=== PATIENT | male | born 1985 | race Caucasian/White ===

== ENCOUNTER → 2018-01-22 | Outpatient (CLI) | payer BC ==
[~2018-01-22] MED LIST: ACHD5005 PO; ALBU8.5H2 IH; AMOX-355 PO; ATEN100T PO; ATEN50TA PO; BUDE6HFA IH; CHOL500044 PO; CITA20TA7 PO; HYDR25TA4 PO; LEVO500T69 PO; LORA10CA PO; METF1000 PO; MV-M1TAB37 PO; NALT1TAB PO; OMEP40CA36 PO; OMG1KC PO; SERT50TA PO; TRAM50TA2 PO; VERA180T5 PO
--- NOTE | 2018-01-22 11:27 | Diagnostic Imaging Report ---
INDICATION: Right heel pain. TIME OF EXAM: 11:21 a.m Two views of the right calcaneus were obtained. There is a large plantar calcaneal spur and a small posterior calcaneal spur. No fracture is seen. No sclerosis or stress reaction is seen. IMPRESSION: Calcaneal spurs. No other significant abnormality is detected. Dictated by: Dictated on workstation # [id number]
== END ==
LOC: RAD 10:46
PROVIDERS: ATTEND Nurse Practitioner Family
DX: M77.31 Calcaneal spur, right foot (principal)
CPT/HCPCS: 73650

== ENCOUNTER → 2019-10-07 | Outpatient (CLI) | payer BC ==
[~2019-10-07] MED LIST changes: -CITA20TA7 PO; +CITA20TA9 PO; +METF-399 PO; -METF1000 PO; +VERA180T11 PO; -VERA180T5 PO
[2019-10-07 10:13] LABS: BASOPHILS # (AUTO) 0.1 10^3/uL (0.0-0.1); BASOPHILS % (AUTO) 1 % (0-10); EOSINOPHILS # (AUTO) 0.3 10^3/uL (0.0-0.3); EOSINOPHILS % (AUTO) 2 % (0-10); HEMATOCRIT 41 % (40-54); HEMOGLOBIN 13.5 G/DL (13.3-17.7); LYMPHOCYTES # (AUTO) 2.9 X 10^3 (1.0-4.0); LYMPHOCYTES % (AUTO) 25 % (12-44); MEAN CORPUSCULAR HEMOGLOBIN 26 PG (25-34); MEAN CORPUSCULAR HGB CONC 33 G/DL (32-36); MEAN CORPUSCULAR VOLUME 79 FL (80-99); MEAN PLATELET VOLUME 9.5 FL (7.4-10.4); MONOCYTES # (AUTO) 1.2 X 10^3 (0.0-1.0); MONOCYTES % (AUTO) 10 % (0-12); NEUTROPHILS # (AUTO) 7.4 X 10^3 (1.8-7.8); NEUTROPHILS % (AUTO) 63 % (42-75); PLATELET COUNT 309 10^3/uL (130-400); RED CELL DISTRIBUTION WIDTH 15.8 % (10.0-14.5); WHITE BLOOD COUNT 11.9 10^3/uL (4.3-11.0)
[2019-10-07 10:34] LABS: ALANINE AMINOTRANSFERASE 34 U/L (0-55); ALBUMIN 3.9 GM/DL (3.2-4.5); ALKALINE PHOSPHATASE 69 U/L (40-136); BILIRUBIN,TOTAL 0.5 MG/DL (0.1-1.0); BUN/CREATININE RATIO 16; CALCIUM 8.8 MG/DL (8.5-10.1); CARBON DIOXIDE 25 MMOL/L (21-32); CHLORIDE 106 MMOL/L (98-107); CREATININE SERUM 0.91 MG/DL (0.60-1.30); GFR ESTIMATED > 60; GLUCOSE 99 MG/DL (70-105); POTASSIUM 4.1 MMOL/L (3.6-5.0); SODIUM 140 MMOL/L (135-145); TOTAL PROTEIN 6.5 GM/DL (6.4-8.2)
--- NOTE | 2019-10-07 10:41 | Diagnostic Imaging Report ---
EXAMINATION: CHEST (PA AND LATERAL). CLINICAL INDICATION: 34-year-old male, cough, dyspnea. COMPARISON: May 07, 2016. FINDINGS: The heart size and mediastinal contours are unremarkable. There is no identified pneumothorax. There is no pleural effusion. There is no identified focal airspace consolidation. IMPRESSION: 1. No identified acute cardiopulmonary abnormality. 2. The report was faxed to the office of Kayli Gutierrez APRN, by [email or web address]@10:40 AM. Dictated by: Dictated on workstation # [id number]
== END ==
LOC: LAB 09:52
PROVIDERS: ATTEND Nurse Practitioner Family
DX: R05 Cough (principal); R06.00 Dyspnea, unspecified
CPT/HCPCS: 36415; 71046; 80053; 83880; 85025; 85379; 86713; 86738

== ENCOUNTER 2020-04-04 01:43 | Inpatient (IN) | payer BC ==
[2020-04-04] VITALS (13 sets, daily range): BP systolic 101–146; BP diastolic 43–89
[~2020-04-04] VITALS: Ht 190.5 cm; Wt 196.7 kg
[~2020-04-04 01:43] MED LIST changes: +OMEP40CA27 PO; -OMEP40CA36 PO
[2020-04-04] MEDS ORDERED: LACTATED RINGERS 1,000 ML IV ONE ×2 (02:35)
[2020-04-04] MEDS ORDERED: NS IV 500 ML 500 ML IV ONE (02:35)
[2020-04-04 02:38] LABS: ABG BASE EXCESS 2.7 MMOL/L (-2.5-2.5); ABG OXYGEN SATURATION 65 % (94-100); ABG PCO2 48 MMHG (35-45); ABG PH 7.38 (7.37-7.43); ABG PO2 41 MMHG (79-93); ABG TCO2 28.7 MMOL/L (21.0-31.0); ALLENS TEST POSITIVE; INSPIRED O2 2; VENTILATOR NO
[2020-04-04] MEDS ORDERED: AZITHROMYCIN 500 MG (ZITHROMAX) VIAL ONE (02:38)
[2020-04-04] MEDS ORDERED: LACTATED RINGERS 2,000 ML IV ONE (02:38)
[2020-04-04] MEDS ORDERED: cefTRIAXone 1,000 MG IV (ROCEPHIN) VIAL ONE (02:38)
[2020-04-04 02:39] LABS: PATIENT TEMP 38.5
[2020-04-04] MEDS ORDERED: NS IV 500 ML 500 ML ONE (02:39)
[2020-04-04] MEDS ORDERED: NS (IVPB) 250 ML ONE (02:39)
[2020-04-04] MEDS ORDERED: RX-ALBUTEROL INHALER (PROAIR) 8.5 GM IH ONE (02:42)
[2020-04-04] MEDS ORDERED: cefTRIAXone FOR IV USE 1,000 MG in WATER (STERILE) FOR INJECTION 10 ML IV ONE (02:45)
[2020-04-04] MEDS ORDERED: ACETAMINOPHEN 500 MG TAB (TYLENOL) PO PRN ×2 (02:45→06:30)
[2020-04-04] MEDS ORDERED: AZITHROMYCIN INJECTION 500 MG in NS (IVPB) 250 ML IV ONE (02:45)
--- NOTE | 2020-04-04 02:53 | ED Respiratory ---
General Stated Complaint: FEVER, BODY ACHES, CHILLS,SORE THROAT Source: patient, spouse Exam Limitations: no limitations History of Present Illness Date Seen by Provider: Apr 04, 2020 Time Seen by Provider: 01:55 Initial Comments Patient presents to ER by private conveyance from home with his and chief complaint that about 1600 yesterday afternoon he began to feel myalgias in his back and chest chills sweats and shortness of air. He has baseline asthma. He's been using his albuterol inhaler without any improvement. He is on Symbicort. He does not take any other immunocompromising meds. He does take blood pressure medicine but has no history of heart disease or chest pain. No nausea diarrhea constipation or abdominal pain. He denies dysuria. He does travel working for [employer] co[employer]op in [place], [place] all across the [address] [place] [address] area. He says he typically is fairly isolated from other people and has no known sick contacts. He took 800 mg ibuprofen 2 hours prior to arrival. Patient states that since she started feeling sick he drank 3 gallons of Gatorade. Allergies and Home Medications Allergies Uncoded Allergies: DUST (Adverse Reaction, Unknown, 04/04/20) "GRAIN DUST" Home Medications Atenolol 100 Mg Tablet, 100 MG PO HS, (Reported) Citalopram Hydrobromide 20 Mg Tablet, 20 MG PO DAILY, (Reported) Hydrochlorothiazide 25 Mg Tablet, 25 MG PO DAILY, (Reported) Omeprazole 40 Mg Capsule.dr, 40 MG PO DAILY, (Reported) Verapamil HCl 180 Mg Tablet.er, 180 MG PO DAILY, (Reported) Patient Home Medication List Home Medication List Reviewed: Yes Review of Systems Review of Systems Constitutional: chills, diaphoresis, fever, malaise, weakness EENTM: No ear discharge, No ear pain Respiratory: cough (rare); No phlegm; short of breath; No wheezing Cardiovascular: No chest pain, No Hx of Intervention, No palpitations Gastrointestinal: No abdominal pain, No constipation, No diarrhea, No nausea, No vomiting Genitourinary: No discharge, No dysuria, No frequency Musculoskeletal: No back pain, No joint pain Skin: No pruritus, No rash Psychiatric/Neurological: Denies Headache, Denies Numbness All Other Systems Reviewed Negative Unless Noted: Yes Past Rcmkylg-Cxawvd-Tkvuvr Hx Patient Social History Alcohol Use: Denies Use Recreational Drug Use: No Smoking Status: Never a Smoker Former Smoker, Quit: May 07, 2006 Recent Foreign Travel: No Contact w/Someone Who Travel: No Immunizations Up To Date Tetanus Booster (TDap): Unknown Date of Influenza Vaccine: Jul 28, 2013 Past Medical History Asthma, Sleep Apnea Gastroesophageal Reflux Anxiety Family Medical History No Pertinent Family Hx Physical Exam Vital Signs - First Documented 04/04/20 02:07 Temp 37.8 Pulse 105 Resp 20 B/P (MAP) 127/74 (91) Pulse Ox 96 O2 Delivery Nasal Cannula O2 Flow Rate 2.00 Capillary Refill : Height: 6'3.00" Weight: 375lbs. 0.0oz. [id number]; 43.33 BMI Method: General Appearance: moderate distress, obese Eyes: Bilateral Eye Normal Inspection, Bilateral Eye PERRL, Bilateral Eye EOMI HEENT: PERRL/EOMI, normal ENT inspection, pharynx normal Neck: full range of motion, normal inspection Respiratory: lungs clear, respiratory distress ([id number] with oxygen sats in the 92-93% range on room air and respiratory rate of 25-30 breaths per minute), decreased breath sounds Cardiovascular: normal peripheral pulses, regular rate, rhythm, no edema, no murmur, tachycardia Gastrointestinal: normal bowel sounds, non tender, soft Extremities: normal range of motion, non-tender, normal inspection, no pedal edema, no calf tenderness, normal capillary refill Neurologic/Psychiatric: no motor/sensory deficits, alert, normal mood/affect, oriented x 3 Skin: normal color, warm/dry Focused Exam Sepsis Stage: Sepsis Possible Source: Pulmonary Lactate Level 04/04/20 02:25: Lactic Acid Level 1.41 Time of Focused Exam: 03:30 Respiratory: Lungs Clear, Accessory Muscle Use (mild), Decreased Breath Sounds, Respiratory Distress (moderate oxygen saturation upper 90s on 2 L) Cardiovascular: Regular Rate, Rhythm (heart rate in the 90s), No Edema, Normal Peripheral Pulses Capillary Refill: Less Than 3 Seconds Peripheral Pulses: 2+ Dorsalis Pedis (R), 2+ Left Dors-Pedis (L), 2+ Radial Pulses (R), 2+ Radial Pulses (L) Skin: normal color, warm/dry, diaphoresis Lactic Acid Level Laboratory Tests Test 04/04/20 02:25 Lactic Acid Level 1.41 MMOL/L (0.50-2.00) Within 3hrs of presentation: Admin fluids, Admin 30ml/kg IBW due to BMI>30, Blood cultures prior to ABX's, Focus exam, Lactate level Progress/Results/Core Measures Suspected Sepsis Recent Fever Within 48 Hours: Yes Infection Criteria Present: Suspected New Infection Within 3hrs of presentation: Admin fluids, Admin 30ml/kg IBW due to BMI>30, Admin ABX, Blood cultures prior to ABX's, Focus exam, Lactate level SIRS Temperature: Pulse: Respiratory Rate: Laboratory Tests 04/04/20 02:25: White Blood Count 10.7 Blood Pressure / Mean: 04/04/20 02:25: Lactic Acid Level 1.41 Laboratory Tests 04/04/20 02:25: Creatinine 0.99, INR Comment 1.0, Platelet Count 252, Total Bilirubin 0.4 Results/Orders Lab Results Laboratory Tests Test 04/04/20 02:25 04/04/20 02:37 Range/Units White Blood Count 10.7 4.3-11.0 10^3/uL Red Blood Count 5.41 4.35-5.85 10^6/uL Hemoglobin 14.4 13.3-17.7 G/DL Hematocrit 43 40-54 % Mean Corpuscular Volume 79 L 80-99 FL Mean Corpuscular Hemoglobin 27 25-34 PG Mean Corpuscular Hemoglobin Concent 34 32-36 G/DL Red Cell Distribution Width 14.9 H 10.0-14.5 % Platelet Count 252 130-400 10^3/uL Mean Platelet Volume 10.6 H 7.4-10.4 FL Neutrophils (%) (Auto) 77 H 42-75 % Lymphocytes (%) (Auto) 11 L 12-44 % Monocytes (%) (Auto) 10 0-12 % Eosinophils (%) (Auto) 2 0-10 % Basophils (%) (Auto) 0 0-10 % Neutrophils # (Auto) 8.2 H 1.8-7.8 X 10^3 Lymphocytes # (Auto) 1.2 1.0-4.0 X 10^3 Monocytes # (Auto) 1.1 H 0.0-1.0 X 10^3 Eosinophils # (Auto) 0.2 0.0-0.3 10^3/uL Basophils # (Auto) 0.0 0.0-0.1 10^3/uL Erythrocyte Sedimentation Rate 6 0-15 MM/HR Prothrombin Time 13.1 12.2-14.7 SEC INR Comment 1.0 0.8-1.4 Activated Partial Thromboplast Time 27 24-35 SEC D-Dimer 0.13 0.00-0.49 UG/ML Blood Gas Puncture Site RIGHT RADIAL Blood Gas Patient Temperature 38.5 Arterial Blood pH 7.38 7.37-7.43 Arterial Blood Partial Pressure CO2 48 H 35-45 MMHG Arterial Blood Partial Pressure O2 41 L 79-93 MMHG Arterial Blood HCO3 27 23-27 MMOL/L Arterial Blood Total CO2 28.7 21.0-31.0 MMOL/L Arterial Blood Oxygen Saturation 65 L 94-100 % Arterial Blood Base Excess 2.7 H -2.5-2.5 MMOL/L Dejan Test POSITIVE Blood Gas Ventilator Setting NO Blood Gas Inspired Oxygen 2 Sodium Level 140 135-145 MMOL/L Potassium Level 4.1 3.6-5.0 MMOL/L Chloride Level 106 98-107 MMOL/L Carbon Dioxide Level 20 L 21-32 MMOL/L Anion Gap 14 5-14 MMOL/L Blood Urea Nitrogen 14 7-18 MG/DL Creatinine 0.99 0.60-1.30 MG/DL Estimat Glomerular Filtration Rate > 60 BUN/Creatinine Ratio 14 Glucose Level 121 H 70-105 MG/DL Lactic Acid Level 1.41 0.50-2.00 MMOL/L Calcium Level 8.9 8.5-10.1 MG/DL Corrected Calcium 8.6 8.5-10.1 MG/DL Magnesium Level 1.8 1.6-2.4 MG/DL Total Bilirubin 0.4 0.1-1.0 MG/DL Aspartate Amino Transf (AST/SGOT) 25 5-34 U/L Alanine Aminotransferase (ALT/SGPT) 32 0-55 U/L Alkaline Phosphatase 69 40-136 U/L Lactate Dehydrogenase 306 H 125-220 U/L Troponin I < 0.028 <0.028 NG/ML C-Reactive Protein High Sensitivity 1.61 H 0.00-0.50 MG/DL Total Protein 7.3 6.4-8.2 GM/DL Albumin 4.4 3.2-4.5 GM/DL Procalcitonin 0.06 <0.10 NG/ML Group A Streptococcus Screen NEGATIVE NEGATIVE Micro Results Microbiology 04/04/20 Influenza Types A,B Antigen (MUNIR) - Final, Complete My Orders Orders - JESS DEJESUS Arterial Blood Gas (04/04/20 02:34) Ceftriaxone For Iv Use (Rocephin For I (04/04/20 02:38) Lactated Ringers (Lr 1000 Ml Iv Solution (04/04/20 02:38) Cbc With Automated Diff (04/04/20 02:35) Comprehensive Metabolic Panel (04/04/20 02:35) Blood Culture (04/04/20 02:35) Sputum Culture (04/04/20 02:35) Urinalysis (04/04/20 02:35) Urine Culture (04/04/20 02:35) Protime With Inr (04/04/20 02:35) Partial Thromboplastin Time (04/04/20 02:35) Chest 1 View, Ap/Pa Only (04/04/20 02:35) Acetaminophen Tablet (Tylenol Tablet) (04/04/20 02:45) Ed Iv/Invasive Line Start (04/04/20 02:35) Ed Iv/Invasive Line Start (04/04/20 02:35) Ekg Tracing (04/04/20 02:35) Troponin I (04/04/20 02:35) Vital Signs Adult Sepsis Patie Q15M (04/04/20 02:35) O2 (04/04/20 02:35) Remove Rings In Anticipation O (04/04/20 02:35) Lactic Acid Analyzer (04/04/20 02:35) Influenza A And B Antigens (04/04/20 02:35) Lactated Ringers (Lr 1000 Ml Iv Solution (04/04/20 02:35) Ceftriaxone For Iv Use (Rocephin For I (04/04/20 02:45) Azithromycin Injection (Zithromax Inject (04/04/20 02:45) Ed Iv/Invasive Line Start (04/04/20 02:35) Ns Iv 500 Ml (Sodium Chloride 0.9%) (04/04/20 02:35) Lactated Ringers (Lr 1000 Ml Iv Solution (04/04/20 02:35) Fibrin Degradation Products (04/04/20 02:35) Procalcitonin (Pct) (04/04/20 02:35) Hs C Reactive Protein (04/04/20 02:35) Erythrocyte Sedimentation Rate (04/04/20 02:35) LDH (04/04/20 02:35) Rapid Strep A Screen (04/04/20 02:35) Coronavirus Sars-Cov-2 So 2018 (04/04/20 02:35) Azithromycin Injection (Zithromax Inject (04/04/20 02:38) Ns Iv 500 Ml (Sodium Chloride 0.9%) (04/04/20 02:39) Ns (Ivpb) (Sodium Chloride 0.9%) (04/04/20 02:39) Rx-Albuterol Inhaler (Rx-Proair) (04/04/20 02:42) Water (Sterile) For Injection (Sterile W (04/04/20 02:55) Respiratory Virus Panel By Pcr (04/04/20 03:03) Mycoplasma Antibodies (04/04/20 03:03) Magnesium (04/04/20 02:25) Medications Given in ED Current Medications Medications Dose Ordered Sig/Autumn Route Start Time Stop Time Status Last Admin Dose Admin Acetaminophen 1,000 mg ONCE PRN PO 04/04/20 02:45 04/04/20 03:57 DC 04/04/20 03:55 1,000 MG Azithromycin 500 mg/Sodium Chloride 250 ml @ 250 mls/hr ONCE ONCE IV 04/04/20 02:45 04/04/20 03:44 DC 04/04/20 02:56 250 MLS/HR Ceftriaxone Sodium 1000 mg/ Sterile Water 10 ml @ 200 mls/hr ONCE ONCE IV 04/04/20 02:45 04/04/20 02:47 DC 04/04/20 02:56 200 MLS/HR Lactated Ringer's 1,000 ml @ 0 mls/hr Q0M ONCE IV 04/04/20 02:35 04/04/20 02:41 DC 04/04/20 03:00 1,000 MLS/HR Lactated Ringer's 1,000 ml @ 0 mls/hr Q0M ONCE IV 04/04/20 02:35 04/04/20 02:41 DC 04/04/20 03:56 1,000 MLS/HR Sodium Chloride 500 ml @ 0 mls/hr Q0M ONCE IV 04/04/20 02:35 04/04/20 02:41 DC 04/04/20 03:56 500 MLS/HR Vital Signs/I&O 04/04/20 04/04/20 02:07 02:37 Temp 37.8 Pulse 105 Resp 20 B/P (MAP) 127/74 (91) Pulse Ox 96 94 O2 Delivery Nasal Cannula Nasal Cannula O2 Flow Rate 2.00 2.00 Capillary Refill : Progress Note : Time: 02:55 Progress Note The patient is septic based on his tachycardia and tachypnea. He has a history of subjective fevers and presents with a temperature 100.0 presently. Lung sounds are diminished but clear. We'll give him a couple puffs of albuterol through and MDI get a septic workup cover him with Rocephin and azithromycin and based on an adjusted ideal body weight of 130 kg we'll give him 2500 cc of fluid to start. Chest x-ray has been ordered. Suspect viral pneumonia versus atypical pneumonia versus other. Obtain COVID-19 swab, influenza, mycoplasma, and viral panel. Tylenol 1000 mg for his body aches. ECG Initial ECG Impression Date: Apr 04, 2020 Initial ECG Impression Time: 02:13 Initial ECG Rate: 92 Initial ECG Rhythm: Normal Sinus Initial ECG Intervals: Normal Initial ECG Impression: Normal, Nonspecific Changes Initial ECG Comparisson: Unchanged Comment Normal sinus rhythm without clinically relevant ST, T-wave elevation or depression. Respiratory artifact obscures part of the lateral leads. Left ventricular hypertrophy Diagnostic Imaging Diagonstic Imaging: Xray Plain Films/CT/US/NM/MRI: chest (1v) Reviewed: Reviewed by Me Departure Communication (Admissions) Time/Spoke to Admitting Phy: 04:00 Discussed the case with Dr. Ott and she agrees to admit the patient to cardiac stepdown on antibiotics for presumptive pneumonia. Impression Primary Impression: Sepsis Qualified Codes: A41.9 - Sepsis, unspecified organism; R65.20 - Severe sep sis without septic shock; J96.01 - Acute respiratory failure with hypoxia Additional Impressions: Acute respiratory failure with hypoxia and hypercarbia Pneumonia Qualified Codes: J18.9 - Pneumonia, unspecified organism Disposition: ADMITTED INPATIENT Condition: Stable Admissions Decision to Admit Reason: Admit from ER (General) Decision to Admit/Date: Apr 04, 2020 Time/Decision to Admit Time: 03:30 Departure-Patient Inst. Referrals: RADHA OTT DO (PCP/Family) Primary Care Physician JESS DEJESUS Apr 04, 2020 02:53
[2020-04-04 02:54] LABS: BASOPHILS % (AUTO) 0 % (0-10); EOSINOPHILS # (AUTO) 0.2 10^3/uL (0.0-0.3); EOSINOPHILS % (AUTO) 2 % (0-10); HEMATOCRIT 43 % (40-54); HEMOGLOBIN 14.4 G/DL (13.3-17.7); LYMPHOCYTES # (AUTO) 1.2 X 10^3 (1.0-4.0); LYMPHOCYTES % (AUTO) 11 % (12-44); MEAN CORPUSCULAR HEMOGLOBIN 27 PG (25-34); MEAN CORPUSCULAR HGB CONC 34 G/DL (32-36); MEAN CORPUSCULAR VOLUME 79 FL (80-99); MEAN PLATELET VOLUME 10.6 FL (7.4-10.4); MONOCYTES # (AUTO) 1.1 X 10^3 (0.0-1.0); MONOCYTES % (AUTO) 10 % (0-12); NEUTROPHILS # (AUTO) 8.2 X 10^3 (1.8-7.8); NEUTROPHILS % (AUTO) 77 % (42-75); PLATELET COUNT 252 10^3/uL (130-400); RED CELL DISTRIBUTION WIDTH 14.9 % (10.0-14.5); WHITE BLOOD COUNT 10.7 10^3/uL (4.3-11.0)
[2020-04-04] MEDS ORDERED: WATER (STERILE) FOR INJECTION 10 ML ONE (02:55)
[2020-04-04 03:23] LABS: ERYTHROCYTE SEDIMENTATION RATE 6 MM/HR (0-15)
[2020-04-04 03:24] LABS: ALBUMIN 4.4 GM/DL (3.2-4.5); CALCIUM 8.9 MG/DL (8.5-10.1); CHLORIDE 106 MMOL/L (98-107); GLUCOSE 121 MG/DL (70-105); POTASSIUM 4.1 MMOL/L (3.6-5.0); SODIUM 140 MMOL/L (135-145); TOTAL PROTEIN 7.3 GM/DL (6.4-8.2)
[2020-04-04 03:25] LABS: CARBON DIOXIDE 20 MMOL/L (21-32)
[2020-04-04 03:39] LABS: ALANINE AMINOTRANSFERASE 32 U/L (0-55); ALKALINE PHOSPHATASE 69 U/L (40-136); BILIRUBIN,TOTAL 0.4 MG/DL (0.1-1.0); BUN/CREATININE RATIO 14; CREATININE SERUM 0.99 MG/DL (0.60-1.30); GFR ESTIMATED > 60
--- NOTE | 2020-04-04 04:14 | NUR ---
REPORT GIVEN TO RUTHIE COHEN, VERBALIZES SHE WILL BE DOWN SHORTLY TO TAKE PATIENT UP TO ROOM 4 CARDIAC STEPDOWN.
[2020-04-04 04:21] LABS: PROTHROMBIN TIME PATIENT 13.1 SEC (12.2-14.7)
[2020-04-04 04:22] LABS: FIBRIN DEGRADATION PRODUCTS 0.13 UG/ML (0.00-0.49)
[2020-04-04 04:27] LABS: BILIRUBIN,URINE NEGATIVE (NEGATIVE); CLARITY,URINE SL CLOUDY; COLOR,URINE DARK YELLOW; GLUCOSE, URINE (UA) NEGATIVE (NEGATIVE); KETONES,URINE NEGATIVE (NEGATIVE); LEUKOCYTE ESTERASE ,URINE NEGATIVE (NEGATIVE); NITRITE,URINE NEGATIVE (NEGATIVE); PH,URINE 5.5 (5-9); PROTEIN,URINE NEGATIVE (NEGATIVE)
[2020-04-04 04:31] LABS: MAGNESIUM 1.8 MG/DL (1.6-2.4)
[2020-04-04] MEDS ORDERED: NS IV 1000 ML 1,000 ML ONE (04:38)
[2020-04-04 04:48] LABS: BACTERIA,URINE NEGATIVE /HPF; SQUAMOUS EPITHELIAL CELL,UR RARE /HPF
[2020-04-04] MEDS ORDERED: RT-ALBUTEROL/IPRATROPIUM 3 ML (DUONEB) VIAL INH PRN (05:30)
--- NOTE | 2020-04-04 05:58 | NUR ---
TRIED TO GET ABG AND LA ON PT. STUCK PT ONCE FOR ABG AND PT STARTLED VERY EASILY AND SCREAMED. PT DID NOT WANT ME TO TRY AGAIN FOR LABS AT THIS TIME. EDUCATED PT ON THE IMPORTANCE OF LABS BEING DRAWN. ALSO INFORMED PT HE HAS MORE LABS AT 0800 THIS AM. PT STATES HE WANTS THEM ALL DRAWN THEN.
--- NOTE | 2020-04-04 06:29 | Diagnostic Imaging Report ---
INDICATION: Cough and fever. Comparison made with prior examination 10/07/2019. FINDINGS: The heart size, mediastinal configuration, and pulmonary vascularity are within normal limits. There is no pleural effusion, pneumothorax, or pneumonia. The osseous structures are unremarkable. IMPRESSION: No acute cardiopulmonary abnormality. Dictated by: Dictated on workstation # [id number]
[2020-04-04] MEDS ORDERED: IBUPROFEN 800 MG (MOTRIN) TAB PO PRN (06:30)
[2020-04-04] MEDS ORDERED: ONDANSETRON 4 MG/2 ML (SDV) Z0FRAN IV PRN (06:30)
[2020-04-04 08:11] LABS: ABG BASE EXCESS 0.6 MMOL/L (-2.5-2.5); ABG OXYGEN SATURATION 97 % (94-100); ABG PCO2 47 MMHG (35-45); ABG PH 7.36 (7.37-7.43); ABG PO2 98 MMHG (79-93)
[2020-04-04 08:13] LABS: ALLENS TEST YES-POS; INSPIRED O2 1; PATIENT TEMP 36.7; VENTILATOR NO
[2020-04-04] MEDS: NS IV 1000 ML 1,000 ML IV SCH ×3 (08:57→20:54)
[2020-04-04 09:22] LABS: BASOPHILS % (AUTO) 0 % (0-10); EOSINOPHILS # (AUTO) 0.1 10^3/uL (0.0-0.3); EOSINOPHILS % (AUTO) 1 % (0-10); HEMATOCRIT 40 % (40-54); HEMOGLOBIN 13.1 G/DL (13.3-17.7); LYMPHOCYTES # (AUTO) 1.2 X 10^3 (1.0-4.0); LYMPHOCYTES % (AUTO) 16 % (12-44); MEAN CORPUSCULAR HEMOGLOBIN 26 PG (25-34); MEAN CORPUSCULAR HGB CONC 33 G/DL (32-36); MEAN CORPUSCULAR VOLUME 80 FL (80-99); MEAN PLATELET VOLUME 10.6 FL (7.4-10.4); MONOCYTES # (AUTO) 0.7 X 10^3 (0.0-1.0); MONOCYTES % (AUTO) 9 % (0-12); NEUTROPHILS # (AUTO) 5.6 X 10^3 (1.8-7.8); NEUTROPHILS % (AUTO) 74 % (42-75); PLATELET COUNT 220 10^3/uL (130-400); WHITE BLOOD COUNT 7.6 10^3/uL (4.3-11.0)
[2020-04-04 09:27] LABS: ALBUMIN 3.9 GM/DL (3.2-4.5); CHLORIDE 108 MMOL/L (98-107); SODIUM 140 MMOL/L (135-145)
[2020-04-04 09:28] LABS: CALCIUM 8.2 MG/DL (8.5-10.1)
[2020-04-04 09:29] LABS: GLUCOSE 174 MG/DL (70-105); TOTAL PROTEIN 6.5 GM/DL (6.4-8.2)
[2020-04-04 09:30] LABS: CARBON DIOXIDE 20 MMOL/L (21-32)
[2020-04-04 09:31] LABS: BILIRUBIN,TOTAL 0.4 MG/DL (0.1-1.0)
[2020-04-04 09:33] LABS: ALKALINE PHOSPHATASE 61 U/L (40-136); CREATININE SERUM 0.89 MG/DL (0.60-1.30); GFR ESTIMATED > 60
[2020-04-04 09:34] LABS: BUN/CREATININE RATIO 13
[2020-04-04 09:36] LABS: ALANINE AMINOTRANSFERASE 27 U/L (0-55)
[2020-04-04] MEDS ORDERED: ESCI20TA45 PO (15:49)
[2020-04-04] MEDS ORDERED: NAPR220C11 PO (15:49)
[2020-04-04] MEDS ORDERED: OMEP20CA18 PO (15:49)
[2020-04-04] MEDS ORDERED: BUDE10.2 PO (15:49)
[2020-04-04] MEDS ORDERED: IBUP-2185 PO (15:49)
--- NOTE | 2020-04-04 15:50 | NUR ---
CALLED THE PATIENTS ROOM PHONE, WENT THRU THE EXT MED HISTORY THEN CALLED [facility] TO COMPLETE THE MED REC ATENOLOL 100MG- LAST FILLED 12-14-2019 #90- I DID DOCUMENT THE PAST DUE FILL ON THE MED REC PT DID MENTION HE USES AN ALBUTEROL HFA HOWEVER [facility] HAS NOT FILLED ANY RESCUE INHALERS IN OVER A YEAR- FOR THAT REASON I DID NOT INCLUDE ON THE MED REC OTC MEDS: ALEVE IBUPROFEN
[2020-04-04] MEDS ORDERED: KETOROLAC 30 MG/ML VIAL IVP NR (16:30)
[2020-04-04] MEDS ORDERED: ALPRAZolam 0.5 MG (XANAX) TAB PO PRN (16:45)
--- NOTE | 2020-04-04 18:13 | History & Physical ---
History of Present Illness History of Present Illness Reason for visit/HPI This is a 35 year old male with a known history of asthma and recurrent pneumonia who presented to the emergency room with onset of myalgias, sweats, chills and shortness of air. He was found to be hypoxic with acute respiratory distress and met sepsis protocol. He will be admitted for viral vs atypical pneumonia with COVID testing pending. Date of Admission Apr 04, 2020 at 03:15 Date Seen by a Provider: Apr 04, 2020 Time Seen by a Provider: 12:45 I consulted on this patient on 04/04/20 16:52 Attending Physician Mary Morin DO Admitting Physician Radha Ott DO Consult Allergies and Home Medications Allergies Uncoded Allergies: DUST (Adverse Reaction, Unknown, 04/04/20) "GRAIN DUST" Home Medications Atenolol 100 Mg Tablet, 100 MG PO HS, (Reported) LAST FILLED 12-14-2019 #90 Budesonide/Formoterol Fumarate 10.2 Gm Hfa.aer.ad, 2 PUFF PO BID, (Reported) Escitalopram Oxalate 20 Mg Tablet, 20 MG PO DAILY, (Reported) Hydrochlorothiazide 25 Mg Tablet, 25 MG PO DAILY, (Reported) Ibuprofen 200 Mg Capsule, 800 MG PO HS, (Reported) Naproxen Sodium 220 Mg Capsule, 440 MG PO DAILY, (Reported) Omeprazole 20 Mg Capsule.dr, 20 MG PO DAILY, (Reported) Verapamil HCl 180 Mg Tablet.er, 180 MG PO DAILY, (Reported) Patient Home Medication List Home Medication List Reviewed: Yes Past Pwftmub-Qwhqmr-Ibexit Hx Past Med/Social Hx: Reviewed Nursing Past Med/Soc Hx Patient Social History Marrital Status: Alcohol Use: Denies Use Recreational Drug Use: No Smoking Status: Never a Smoker Former Smoker, Quit: May 07, 2006 Recent Foreign Travel: No Contact w/other who traveled: No Recent Infectious Disease Expo: No Immunizations Up To Date Tetanus Booster (TDap): Unknown Date of Influenza Vaccine: Jul 28, 2019 Past Medical History Cardiac: Hypertension Gastrointestinal: Gastroesophageal Reflux Psychosocial: Anxiety, Depression History of Blood Disorders: No Family History Patient reports no known family medical history. No Pertinent Family Hx Review of Systems Constitutional: chills, diaphoresis, weakness EENTM: nose congestion Respiratory: dyspnea on exertion, short of breath Cardiovascular: No no symptoms reported, No see HPI, No chest pain, No edema, No Hx of Intervention, No palpitations, No syncope, No vascular heart diseas, No other Gastrointestinal: No RUQ, No LUQ, No RLQ, No LLQ, No no symptoms reported, No see HPI, No abdominal pain, No constipation, No diarrhea, No dysphagia, No hematemesis, No heartburn, No jaundice, No loss of appetite, No melena, No nausea, No vomiting, No other Genitourinary: No no symptoms reported, No see HPI, No decreased output, No discharge, No dysuria, No frequency, No hematuria, No hesitancy, No incon tinence, No nocturia, No pain, No other Musculoskeletal: muscle pain Skin: No no symptoms reported, No see HPI, No change in color, No change in hair/nails, No dryness, No hx of skin cancer, No lesions, No lumps, No pruritus, No rash, No other Psychiatric/Neurological: Anxiety Physical Exam Vital Signs Vital Signs - First Documented 04/04/20 04/04/20 02:07 05:17 Temp 37.8 Pulse 105 Resp 20 B/P (MAP) 127/74 (91) Pulse Ox 96 O2 Delivery Nasal Cannula O2 Flow Rate 2.00 FiO2 2 Capillary Refill : Less Than 3 Seconds Height, Weight, BMI Height: 6'3.00" Weight: 375lbs. 0.0oz. [id number]; 357.51 BMI Method: General Appearance: Mild Distress HEENT: Normal ENT Inspection Neck: Supple Respiratory: Lungs Clear, Decreased Breath Sounds Cardiovascular: Regular Rate, Rhythm, Gallop/S4 Gastrointestinal: Normal Bowel Sounds, Non Tender, Soft Rectal: Deferred Back: No CVA Tenderness Extremity: Non Tender, No Calf Tenderness, No Pedal Edema Neurologic/Psychiatric: Alert, Oriented x3 Skin: Warm/Dry Comments Laboratory Tests 04/04/20 02:25: White Blood Count 10.7, Red Blood Count 5.41, Hemoglobin 14.4, Hematocrit 43, Mean Corpuscular Volume 79L, Mean Corpuscular Hemoglobin 27, Mean Corpuscular Hemoglobin Concent 34, Red Cell Distribution Width 14.9H, Platelet Count 252, Mean Platelet Volume 10.6H, Neutrophils (%) (Auto) 77H, Lymphocytes (%) (Auto) 11L, Monocytes (%) (Auto) 10, Eosinophils (%) (Auto) 2, Basophils (%) (Auto) 0, Neutrophils # (Auto) 8.2H, Lymphocytes # (Auto) 1.2, Monocytes # (Auto) 1.1H, Eosinophils # (Auto) 0.2, Basophils # (Auto) 0.0, Erythrocyte Sedimentation Rate 6, Prothrombin Time 13.1, INR Comment 1.0, Activated Partial Thromboplast Time 27, D-Dimer 0.13, Blood Gas Puncture Site RIGHT RADIAL, Blood Gas Patient Temperature 38.5, Arterial Blood pH 7.38, Arterial Blood Partial Pressure CO2 48H, Arterial Blood Partial Pressure O2 41L, Arterial Blood HCO3 27, Arterial Blood Total CO2 28.7, Arterial Blood Oxygen Saturation 65L, Arterial Blood Base Excess 2.7H, Dejan Test POSITIVE, Blood Gas Ventilator Setting NO, Blood Gas Inspired Oxygen 2, Sodium Level 140, Potassium Level 4.1, Chloride Level 106, Carbon Dioxide Level 20L, Anion Gap 14, Blood Urea Nitrogen 14, Creatinine 0.99, Estimat Glomerular Filtration Rate > 60, BUN/Creatinine Ratio 14, Glucose Level 121H, Lactic Acid Level 1.41, Calcium Level 8.9, Corrected Calcium 8.6, Magnesium Level 1.8, Total Bilirubin 0.4, Aspartate Amino Transf (AST/SGOT) 25, Alanine Aminotransferase (ALT/SGPT) 32, Alkaline Phosphatase 69, Lactate Dehydrogenase 306H, Troponin I < 0.028, C-Reactive Protein High Sensitivity 1.61H, Total Protein 7.3, Albumin 4.4, Procalcitonin 0.06 04/04/20 02:37: Adenovirus (PCR) [Pending], Coronavirus (COVID-19)(PCR) Negative, Human Metapneumovirus (PCR) [Pending], Influenza Virus Type A (PCR) [Pending], Influenza Virus Type B (PCR) [Pending], Mycoplasma Pneumoniae Antibody [Pending], Mycoplasma pneumoniae IgG Antibody [Pending], Mycoplasma pneumoniae IgM Antibody [Pending], Parainfluenza Type 1 (PCR) [Pending], Parainfluenza Type 2 (PCR) [Pending], Parainfluenza Type 3 (PCR) [Pending], Respiratory Syncytial Virus (PCR) [Pending], Group A Streptococcus Screen NEGATIVE 04/04/20 04:20: Urine Color DARK YELLOW, Urine Clarity SL CLOUDY, Urine pH 5.5, Urine Specific [place] 1.025H, Urine Protein NEGATIVE, Urine Glucose (UA) NEGATIVE, Urine Ketones NEGATIVE, Urine Nitrite NEGATIVE, Urine Bilirubin NEGATIVE, Urine Urobilinogen 0.2, Urine Leukocyte Esterase NEGATIVE, Urine RBC (Auto) NEGATIVE, Urine RBC NONE, Urine WBC NONE, Urine Squamous Epithelial Cells RARE, Urine Crystals NONE, Urine Bacteria NEGATIVE, Urine Casts NONE, Urine Mucus NEGATIVE, Urine Culture Indicated CULTURE PENDING 04/04/20 08:10: Blood Gas Puncture Site RT RADIAL, Blood Gas Patient Temperature 36.7, Arterial Blood pH 7.36L, Arterial Blood Partial Pressure CO2 47H, Arterial Blood Partial Pressure O2 98H, Arterial Blood HCO3 26, Arterial Blood Total CO2 27.0, Arterial Blood Oxygen Saturation 97, Arterial Blood Base Excess 0.6, Dejan Test YES-POS, Blood Gas Ventilator Setting NO, Blood Gas Inspired Oxygen 1 04/04/20 08:41: White Blood Count 7.6, Red Blood Count 4.96, Hemoglobin 13.1L, Hematocrit 40, Mean Corpuscular Volume 80, Mean Corpuscular Hemoglobin 26, Mean Corpuscular Hemoglobin Concent 33, Red Cell Distribution Width 15.0H, Platelet Count 220, Mean Platelet Volume 10.6H, Neutrophils (%) (Auto) 74, Lymphocytes (%) (Auto) 16, Monocytes (%) (Auto) 9, Eosinophils (%) (Auto) 1, Basophils (%) (Auto) 0, Neutrophils # (Auto) 5.6, Lymphocytes # (Auto) 1.2, Monocytes # (Auto) 0.7, Eosinophils # (Auto) 0.1, Basophils # (Auto) 0.0, Sodium Level 140, Potassium Level 4.0, Chloride Level 108H, Carbon Dioxide Level 20L, Anion Gap 12, Blood Urea Nitrogen 12, Creatinine 0.89, Estimat Glomerular Filtration Rate > 60, BUN/Creatinine Ratio 13, Glucose Level 174H, Lactic Acid Level 2.11*H, Calcium Level 8.2L, Corrected Calcium 8.3L, Total Bilirubin 0.4, Aspartate Amino Transf (AST/SGOT) 20, Alanine Aminotransferase (ALT/SGPT) 27, Alkaline Phosphatase 61, Total Protein 6.5, Albumin 3.9 04/04/20 12:00: Lactic Acid Level 1.40 Microbiology 04/04/20 Influenza Types A,B Antigen (MUNIR) - Final, Complete Assessment/Plan Assessment and Plan 1. Acute Respiratory Distress with Hypoxia--admit to ICU on oxygen 2. Sepsis--sepsis protocol with zithromax and rocephin to cover for pneumonia while cultures/COVID pending 3. Viral vs Atypical Pneumonia--cover with IV rocephin/zithromax 4. Asthma--SVNs with duoneb 5. Hypertension--restart home diltiazem Admission Diagnosis Admission Status: Inpatient Order (span 2 midnights) Reason for Inpatient Admission: Will need sepsis protocol and 2 negative COVID tests Clinical Quality Measures DVT/VTE Risk/Contraindication: Risk Factor Score Per Nursin RFS Level Per Nursing on Admit: 3=High RADHA OTT DO Apr 04, 2020 18:13
--- NOTE | 2020-04-04 20:03 | NUR ---
PT WANTING MEDICATION TO HELP HIM SLEEP TONIGHT. SPOKE TO DR. WATSON. TELEPHONE ORDER RECEIVED FOR TRAZODONE 75MG PO Q HS.
[2020-04-04] MEDS: ADVAIR HFA 115/21 MCG INHALER 8 GM IH SCH (20:15)
[2020-04-04] MEDS: ENOXAPARIN 60 MG/0.6 ML (LOVENOX) SYR SC SCH (20:53)
[2020-04-04] MEDS ORDERED: traZODone 50 MG (DESYREL) TAB PO SCH (21:00)
[2020-04-04] MEDS ORDERED: ATENOLOL 50 MG (TENORMIN) TAB PO SCH (21:00)
[2020-04-05 00:49] VITALS: BP 109/63
[2020-04-05] MEDS ORDERED: cefTRIAXone 1,000 MG IV (ROCEPHIN) VIAL ONE (02:28)
[2020-04-05] MEDS ORDERED: WATER (STERILE) FOR INJECTION 10 ML ONE (02:28)
[2020-04-05] MEDS: NS IV 1000 ML 1,000 ML IV SCH ×2 (02:39→10:42)
[2020-04-05 02:57] VITALS: BP 134/77
[2020-04-05] MEDS ORDERED: cefTRIAXone 1,000 MG/SWFI 10 ML IV PUSH IV SCH ×2 (03:00)
[2020-04-05] MEDS ORDERED: AZITHROMYCIN 500 MG/NS 250 ML IVPB IV SCH ×2 (03:00)
[2020-04-05 03:11] LABS: HEMOGLOBIN 13.5 G/DL (13.3-17.7); MEAN PLATELET VOLUME 10.3 FL (7.4-10.4); RED CELL DISTRIBUTION WIDTH 14.9 % (10.0-14.5); WHITE BLOOD COUNT 6.1 10^3/uL (4.3-11.0)
[2020-04-05 03:30] LABS: ALBUMIN 3.9 GM/DL (3.2-4.5); CHLORIDE 108 MMOL/L (98-107); POTASSIUM 3.9 MMOL/L (3.6-5.0); SODIUM 142 MMOL/L (135-145)
[2020-04-05 03:31] LABS: CALCIUM 8.7 MG/DL (8.5-10.1)
[2020-04-05 03:32] LABS: GLUCOSE 102 MG/DL (70-105); TOTAL PROTEIN 6.5 GM/DL (6.4-8.2)
[2020-04-05 03:33] LABS: CARBON DIOXIDE 25 MMOL/L (21-32)
[2020-04-05 03:34] LABS: BILIRUBIN,TOTAL 0.4 MG/DL (0.1-1.0)
[2020-04-05 03:36] LABS: ALKALINE PHOSPHATASE 59 U/L (40-136); CREATININE SERUM 0.82 MG/DL (0.60-1.30); GFR ESTIMATED > 60
[2020-04-05 03:37] LABS: BUN/CREATININE RATIO 11
[2020-04-05 04:44] LABS: ALANINE AMINOTRANSFERASE 29 U/L (0-55)
[2020-04-05] MEDS: ENOXAPARIN 60 MG/0.6 ML (LOVENOX) SYR SC SCH (06:46)
[2020-04-05] MEDS: ADVAIR HFA 115/21 MCG INHALER 8 GM IH SCH (06:49)
[2020-04-05 08:00] VITALS: BP 117/73
[2020-04-05] MEDS ORDERED: PANTOPRAZOLE 20 MG TABLET (PROTONIX) PO SCH (09:00)
[2020-04-05] MEDS ORDERED: VERAPAMIL SR 180 MG (CALAN SR) TAB PO SCH (09:00)
[2020-04-05 11:45] LABS: RSV PCR TEST Not Detected (Not Detected)
--- NOTE | 2020-04-05 13:51 | Diagnostic Imaging Report ---
INDICATION: Dyspnea. COMPARISON: 04/04/2020. TECHNIQUE: Single radiograph of the chest dated 04/05/2020. FINDINGS: The cardiac silhouette and pulmonary vasculature are within normal limits. The lungs are clear of focal pulmonary opacity. No pleural effusion. No pneumothorax. No acute osseous abnormality. IMPRESSION: Similar-appearing examination without acute cardiopulmonary abnormality. Dictated by: Dictated on workstation # [id number]
--- NOTE | 2020-04-05 15:02 | NUR ---
Pt currently requesting to be discharged at this time. Dr. Ott notified of pt's chest xray completion and mono results. New orders received for discharge at this time. This RN instructed pt: "do not return to work until covid test is resulted and he has been notified that he is safe to return to public." Education provided on hand hygiene and isolation given possible COVID diagnosis. Pt verbalized understanding.
--- NOTE | 2020-04-05 17:00 | NUR ---
JASMIN CARMICHAEL demonstrates understanding of discharge instructions and accurately returns instructions upon questioning. Copy of Post-Discharge Instructions and Medication Discharge Instructions given to patient. JASMIN CARMICHAEL is able to manage continuing needs after discharge. Patients belongings returned to patient. Skin dry and intact; no breakdown noted. Patient discharged from [facility] on 04/05/2020 at 1700. JASMIN CARMICHAEL left floor walking self, accompanied by this RN.
--- NOTE | 2020-04-05 17:02 | Discharge Summary ---
Diagnosis/Chief Complaint Date of Admission Apr 04, 2020 at 03:15 Date of Discharge Discharge Date: Apr 05, 2020 Discharge Diagnosis 1. Acute Respiratory Distress with Hypoxia--resolved 2. Sepsis--improved, 2nd COVID still pending 3. Viral vs Atypical Pneumonia--appears viral 4. Asthma--stable 5. Hypertension--stable 6. Pharyngitis--likely viral Reason Hospital Visit This is a 35 year old male with a known history of asthma and recurrent pneumonia who presented to the emergency room with onset of myalgias, sweats, chills and shortness of air. He was found to be hypoxic with acute respiratory distress and met sepsis protocol. He will be admitted for viral vs atypical pneumonia with COVID testing pending. Discharge Summary Hospital Course Was the Problem List Reviewed?: Yes Hospital Course This is a 35 year old male with a known history of asthma and recurrent pneumonia who presented to the emergency room with onset of myalgias, sweats, chills and shortness of air. He was found to be hypoxic with acute respiratory distress and met sepsis protocol. He will be admitted for viral vs atypical pneumonia with COVID testing pending. He was admitted to the ICU in droplet contact isolation while COVID 19 results were pending. He was given IV rocephin and zithromax. By the 2nd hospital day his lactic acid was back to normal and he was not requiring oxygen. His first COVID-19 test came back negative but it was decided a second test needed to be done. He did not want to stay another day in the hospital and was threatening to leave AMA so he was given some oral xanax to help relax him and he agreed to stay. The next hospital day he denied shortness of air, he denied cough, and he had no further fever or chills. His only complaint was of a sore throat and wanting to go home. Strep testing was negative so a monospot was done which was also negative. His lab remained stable except for his CRP elevating but he refused to stay due to feeling much better and wanting out of the hospital. He understands that he must quarantine at home until his second COVID-19 results are back and that he should return to the hospital immediately if he has any return of respiratory distress. Labs Laboratory Tests 04/04/20 02:25: Mean Corpuscular Volume 79L, Red Cell Distribution Width 14.9H, Mean Platelet Volume 10.6H, Neutrophils (%) (Auto) 77H, Lymphocytes (%) (Auto) 11L, Neutrophils # (Auto) 8.2H, Monocytes # (Auto) 1.1H, Arterial Blood Partial Pres sure CO2 48H, Arterial Blood Partial Pressure O2 41L, Arterial Blood Oxygen Saturation 65L, Arterial Blood Base Excess 2.7H, Carbon Dioxide Level 20L, Glucose Level 121H, Lactate Dehydrogenase 306H, C-Reactive Protein High Sensitivity 1.61H 04/04/20 02:37: Mycoplasma pneumoniae IgG Antibody 1:256H 04/04/20 04:20: Urine Specific [place] 1.025H 04/04/20 08:10: Arterial Blood Partial Pressure CO2 47H, Arterial Blood Partial Pressure O2 98H, Arterial Blood pH 7.36L 04/04/20 08:41: Hemoglobin 13.1L, Red Cell Distribution Width 15.0H, Mean Platelet Volume 10.6H, Chloride Level 108H, Carbon Dioxide Level 20L, Glucose Level 174H, Lactic Acid Level 2.11*H, Calcium Level 8.2L, Corrected Calcium 8.3L 04/04/20 12:00: 04/04/20 17:14: 04/05/20 02:55: Red Cell Distribution Width 14.9H, Chloride Level 108H, C-Reactive Protein High Sensitivity 3.15H Procedures None. Discharge Physical Examination Allergies: Uncoded Allergies: DUST (Adverse Reaction, Unknown, 04/04/20) "GRAIN DUST" Vitals & I&Os Vital Signs Date Time Temp Pulse Resp B/P (MAP) Pulse Ox O2 Delivery O2 Flow Rate FiO2 04/05/20 12:43 75 04/05/20 09:00 Room Air 04/05/20 08:00 117/73 (88) 94 04/05/20 02:57 36.4 04/05/20 00:49 20 04/04/20 15:00 04/04/20 05:17 2 General Appearance: Alert, Oriented X3, No Acute Distress Respiratory: Clear to Auscultation (coarse in bases) Cardiovascular: Regular Rate Abdominal: Normal Bowel Sounds, Soft, No Tenderness Extremities: No Clubbing, No Cyanosis, No Edema Psych/Mental Status: Mental Status NL, Other (anxious/irritable) Discharge Home Medications Reviewed and agree with Discharge Medication list on patient's Discharge Instruction sheet Instructions to Patient/Family Please see electronic discharge instructions given to patient. Clinical Quality Measures DVT/VTE Risk/Contraindication: Risk Factor Score Per Nursin RFS Level Per Nursing on Admit: 3=High RADHA WATSON DO Apr 05, 2020 17:02
== END 2020-04-05 17:00 | disposition home or self-care (01) | DRG 871 ==
LOC: EDUNIT# 01:43 → ER 01:45 → ICU 03:15 → CSD 12:50 → ICU 12:50 → CSD 04-05 15:06
PROVIDERS: ADMIT Internal Medicine; ATTEND Internal Medicine
DX: A41.9 Sepsis, unspecified organism (principal); R65.20 Severe sepsis without septic shock; J18.9 Pneumonia, unspecified organism; J12.9 Viral pneumonia, unspecified; J96.01 Acute respiratory failure with hypoxia; J96.02 Acute respiratory failure with hypercapnia; J02.9 Acute pharyngitis, unspecified; J45.909 Unspecified asthma, uncomplicated; I10 Essential (primary) hypertension; G47.30 Sleep apnea, unspecified; K21.9 Gastro-esophageal reflux disease without esophagitis; F41.9 Anxiety disorder, unspecified; F32.9 Major depressive disorder, single episode, unspecified
CPT/HCPCS: 36415; 36600; 71045; 80053; 81000; 82805; 83605; 83615; 83735; 84145; 84484; 85025; 85027; 85379; 85610; 85652; 85730; 86141; 86308; 86738; 87040; 87088; 87430; 87631; 87635; 87804; 93005; 94640; 94664

== ENCOUNTER → 2022-10-19 | Outpatient (CLI) | payer BC ==
[~2022-10-19] MED LIST changes: +BUDE10.2 PO; +ESCI20TA39 PO; +IBUP-2185 PO; +NAPR220C11 PO; +OMEP20CA18 PO; -OMEP40CA27 PO; +OMEP40CA6 PO; -VERA180T11 PO; +VERA180T55 PO
--- NOTE | 2022-10-19 15:37 | Diagnostic Imaging Report ---
PROCEDURE: US left lower extremity venous. TECHNIQUE: Multiple real-time grayscale images were obtained over the left lower extremity in various projections. Additional duplex Doppler and color Doppler images were also obtained. INDICATION: Pain and swelling in the left lower extremity. FINDINGS: Color Doppler imaging shows normal flow throughout the left lower extremity venous system. There is normal compression and augmentation of flow with Doppler sampling. IMPRESSION: No evidence of venous thrombosis. Dictated by: Dictated on workstation # [id number]
== END ==
LOC: RAD 14:57
PROVIDERS: ATTEND Registered Nurse
DX: M79.89 Other specified soft tissue disorders (principal); M79.662 Pain in left lower leg